=== PATIENT | male | born 1995 | race Two or more races ===

== ENCOUNTER 2017-01-11 16:41 | Emergency (ER) | payer MEDICAID ==
[~2017-01-11] VITALS: Ht 180.3 cm; Wt 101.2 kg
[2017-01-11 16:42] VITALS: BP 137/76
== END 2017-01-11 18:02 | disposition home or self-care (01) ==
LOC: ER 16:47
DX: K61.0 Anal abscess (principal)
CPT/HCPCS: 46050

== ENCOUNTER 2017-01-13 17:36 | Emergency (ER) | payer MEDICAID ==
[~2017-01-13] VITALS: Ht 180.3 cm; Wt 101.2 kg
[2017-01-13 21:03] VITALS: BP 108/61
== END 2017-01-13 21:56 | disposition home or self-care (01) ==
LOC: ER 17:41
DX: L02.215 Cutaneous abscess of perineum (principal); Z48.01 Encounter for change or removal of surgical wound dressing